=== PATIENT | male | born 1945 | race Caucasian/White ===

== ENCOUNTER 2018-04-04 11:29 | Outpatient (RCR) | payer SELFPAY | END 2018-04-05 23:59 | disposition home or self-care (01) | LOC: CR 11:29 | PROVIDERS: PCP Family Medicine; Visit Provider Family Medicine | DX: Z51.89 Encounter for other specified aftercare (principal) ==

== ENCOUNTER 2018-04-25 13:26 | Outpatient (RCR) | payer SELFPAY | END 2018-05-05 23:59 | disposition home or self-care (01) | LOC: CR 13:26 | PROVIDERS: PCP Family Medicine; Visit Provider Family Medicine | DX: Z51.89 Encounter for other specified aftercare (principal) ==

== ENCOUNTER 2018-06-04 08:00 | Outpatient (RCR) | payer SELFPAY | END 2018-06-05 23:59 | disposition home or self-care (01) | LOC: CR 08:00 | PROVIDERS: PCP Family Medicine; Visit Provider Family Medicine | DX: Z51.89 Encounter for other specified aftercare (principal) ==

== ENCOUNTER 2018-07-04 08:00 | Outpatient (RCR) | payer SELFPAY | END 2018-07-05 23:59 | disposition home or self-care (01) | LOC: CR 08:00 | PROVIDERS: PCP Family Medicine; Visit Provider Family Medicine | DX: Z51.89 Encounter for other specified aftercare (principal) ==

== ENCOUNTER 2018-08-01 15:03 | Outpatient (RCR) | payer SELFPAY | END 2018-08-05 23:59 | disposition home or self-care (01) | LOC: CR 15:03 | PROVIDERS: PCP Family Medicine; Visit Provider Family Medicine | DX: Z51.89 Encounter for other specified aftercare (principal) ==

== ENCOUNTER 2018-09-05 08:00 | Outpatient (RCR) | payer SELFPAY | END 2018-09-05 23:59 | disposition home or self-care (01) | LOC: CR 08:00 | PROVIDERS: PCP Family Medicine; Visit Provider Family Medicine | DX: Z51.89 Encounter for other specified aftercare (principal) ==

== ENCOUNTER 2018-10-03 12:39 | Outpatient (RCR) | payer SELFPAY | END 2018-10-03 23:59 | disposition home or self-care (01) | LOC: CR 12:39 | PROVIDERS: PCP Family Medicine; Visit Provider Family Medicine | DX: Z51.89 Encounter for other specified aftercare (principal) ==

== ENCOUNTER 2018-10-17 10:54 | Outpatient (CLI) | payer OTHER, SELFPAY ==
[2018-10-17 13:08] LABS: Anion Gap 10.8 mmol/L (3-11); BUN 24 mg/dL (7-18); CO2 27.2 mmol/L (21.0-32.0); CREATININE 1.21 mg/dL (0.70-1.30); Calcium 9.1 mg/dL (8.5-10.1); Chloride 103 mmol/L (98-107); Estimated GFR 59.29 (mL/min/1.73m2); Glucose 175 mg/dL (70-100); Potassium 4.9 mmol/L (3.5-5.1); Sodium 141 mmol/L (136-145)
== END 2018-10-17 11:14 ==
PROVIDERS: PCP Family Medicine; Visit Provider Family Medicine
DX: R42 Dizziness and giddiness (principal)
CPT/HCPCS: 36415; 80048

== ENCOUNTER 2018-10-22 08:00 | Outpatient (RCR) | payer SELFPAY | END 2018-11-03 23:59 | disposition home or self-care (01) | LOC: CR 08:00 | PROVIDERS: PCP Family Medicine; Visit Provider Family Medicine | DX: Z51.89 Encounter for other specified aftercare (principal) ==

== ENCOUNTER 2018-12-03 08:00 | Outpatient (RCR) | payer SELFPAY | END 2018-12-03 23:59 | disposition home or self-care (01) | LOC: CR 08:00 | PROVIDERS: PCP Family Medicine; Visit Provider Family Medicine | DX: Z51.89 Encounter for other specified aftercare (principal) ==

== ENCOUNTER 2018-12-19 00:18 | Outpatient (CLI) | payer OTHER, SELFPAY ==
--- NOTE | 2018-12-19 14:51 | DI.US_ITS ---
SYMPTOM/DIAGNOSIS: TRANSIENT EPISODES ATAXIA, G45.9 CAROTID ULTRASOUND: There is a minimal amount of intimal thickening in the distal right common carotid artery. A minimal amount of plaque is noted in the left common carotid bulb. The velocity measurements are in the normal range. The vertebral arteries show antegrade flow. IMPRESSION: Minimal plaque. No significant internal carotid artery stenosis.
== END 2018-12-19 00:38 ==
PROVIDERS: PCP Family Medicine; Visit Provider Family Medicine
DX: G45.9 Transient cerebral ischemic attack, unspecified (principal)
CPT/HCPCS: 93880

== ENCOUNTER 2019-01-02 13:30 | Outpatient (RCR) | payer SELFPAY | END 2019-01-03 23:59 | disposition home or self-care (01) | LOC: CR 13:30 | PROVIDERS: PCP Family Medicine; Visit Provider Family Medicine | DX: Z51.89 Encounter for other specified aftercare (principal) ==

== ENCOUNTER 2019-01-30 11:23 | Outpatient (RCR) | payer SELFPAY | END 2019-02-02 23:59 | disposition home or self-care (01) | LOC: CR 11:23 | PROVIDERS: PCP Family Medicine; Visit Provider Family Medicine | DX: Z51.89 Encounter for other specified aftercare (principal) ==

== ENCOUNTER 2019-02-27 11:15 | Outpatient (RCR) | payer OTHER, SELFPAY | END 2019-03-05 23:59 | disposition home or self-care (01) | LOC: CR 11:15 | PROVIDERS: PCP Family Medicine; Visit Provider Family Medicine | DX: Z51.89 Encounter for other specified aftercare (principal) ==

== ENCOUNTER 2019-03-21 07:05 | Day surgery (SDC) | payer OTHER, SELFPAY ==
[2019-03-21 07:36] VITALS: BP 114/71; PULSE 70; RESP 18; TEMP 36.2; O2SAT 96
[2019-03-21] MEDS: Lactated Ringers 1,000 ML 80 ML IV (07:42)
--- NOTE | 2019-03-21 08:00 | W.PM.DSUDISC ---
Discharge Plan Disposition Patient Disposition: HOME Condition: Good Discharge Details Reason For Visit: Colonoscopy Attending Provider: Cora Burgos Primary Care Provider: Willis Bacon Home Meds and New Rx's Prescriptions: Continued levothyroxine 137 mcg capsule 137 mcg PO DAILY Qty: 90 RF: 4 Jardiance 10 mg tablet 10 mg PO Q OTHER DAY RF: 0 omega-3 fatty acids-fish oil 1 EACH capsule 1 ea PO BID RF: 0 CENTRUM SILVER TABLET 1 EACH tablet 1 ea PO DAILY RF: 0 insulin lispro [Humalog KwikPen Insulin] 100 UNIT/1 ML insulin pen 4 - 5 unit SQ AC Qty: 3 RF: 5 cinnamon bark 500 MG capsule 4 cap PO BID RF: 0 lutein 20 MG capsule 1 cap PO BID RF: 0 Tresiba FlexTouch U-200 200 UNIT/1 ML insulin pen 100 unit SQ DAILY Qty: 1 RF: 4 (DME) BD Regular Bevel [place] 1 EACH needle 1 ea Miscellaneous TID Qty: 100 RF: 0 aspirin [Aspir-81] 81 MG tablet,delayed release (DR/EC) 81 mg PO DAILY RF: 0 apple cider vinegar 300 MG tablet 300 mg PO BID RF: 0 glucosamine sulfate-msm 1 EACH capsule 1 ea PO DAILY RF: 0 metformin 1,000 mg tablet 1,000 mg PO BID Qty: 180 RF: 4 gabapentin 600 mg tablet 300 mg PO BID Qty: 270 RF: 4 cyanocobalamin (vitamin B-12) 1,000 mcg/mL solution 1,000 mcg IM Twice a month Qty: 1 RF: 4 rosuvastatin 20 mg tablet 20 mg PO DAILY Qty: 90 RF: 4 nitroglycerin 0.4 mg tablet, sublingual 0.4 mg Sublingual ONCE PRN (Reason: angina) Qty: 10 RF: 3 glipizide 10 mg tablet 10 mg PO BID Qty: 180 RF: 4 (DME) FreeStyle Lite Strips strip 1 ea Miscellaneous QID Qty: 300 RF: 4 isosorbide mononitrate 30 mg tablet extended release 24 hr 30 mg PO HS Qty: 90 RF: 3 Discharge Instructions Additional Instructions: Findings: One small polyp was removed. My office will contact you with biopsy results. Follow up: Plan for colonoscopy in 5 years. Please call if you develop: fevers >101.5 Nausea or Vomiting Abdominal pain that is not transient DAY SURGERY UNIT POST COLONOSCOPY INSTRUCTIONS 1. Because there will be medication in your system for the next 24 hours, you may feel a little sleepy. Your coordination will be affected. Therefore: a. Do not drive or operate dangerous equipment for 24 hours. b. Do not drink alcohol beverages for 24 hours (not even beer). c. Plan to go home and rest for the day. 2. Generally there are no restrictions on your activity after a day or so has gone by, but you may feel a bit fatigued for a few days. 3 After you arrive home you may have a light meal and return to a normal diet as you can tolerate it without feeling sick to your stomach. 4. After surgery, you may feel pain or discomfort. This should be only transient, but if it persists please contact your doctor. 5. If there are any questions regarding the findings of your procedure, please feel free to contact your doctor. 6. If you are unable to contact your doctor with a problem, contact the hospital at [phone]. 7. Continue all your regular medications unless directed otherwise. I understand the above instructions and have no questions. Signature of Patient or Responsible Adult Escort Date/Time Name of Responsible Adult Escort Signature of Nurse Date/Time Activity:: Activity as Tolerated Diet:: As Tolerated Discharge Orders Discharge Orders: Discharge Order (Routine); Ordered 03/21/19 Ordered By: Cora Burgos DS: Diagnosis Discharge Diagnosis (1) Polyp of colon: Status: Resolved
--- NOTE | 2019-03-21 08:36 | BOWEL_PTH ---
PATIENT: Lico Tavera LOC: [facility] U#:[id number] AGE/SX: 73/M ROOM: RE03/21/[address]: Cora Burgos MD : 1945 BED: DIS: 03/21/2019 SPEC #: [id number] RECD: 03/21/19 12:42 STATUS: ADITI REQ #: [id number] CECILE: 03/21/19 08:[address]: Cora Burgos DEPT: Surgical Specimen RECD BY: Libby Chawla ENTERED: 03/21/19 12:44 SP TYPE: Bowel OTHR DR: Willis Bacon MD Tissues: 1 - BIOPSY BOWEL Procedures: GROSS AND MICRO LEVEL 4 Comments: [id number]
[2019-03-21 09:10] VITALS: BP 113/65; PULSE 74; RESP 19; TEMP 36.6; O2SAT 95
[2019-03-21 09:15] VITALS: BP 81/49; PULSE 72; RESP 17; TEMP 36.6; O2SAT 95
[2019-03-21 09:20] VITALS: BP 100/59; PULSE 70; RESP 16; TEMP 36.6; O2SAT 95
[2019-03-21 09:25] VITALS: BP 107/65; PULSE 68; RESP 8; TEMP 36.5; O2SAT 96
[2019-03-21 10:05] VITALS: BP 120/74; PULSE 63; RESP 17; TEMP 36.2; O2SAT 95
--- NOTE | 2019-03-21 11:30 | COLE_ITS ---
DATE OF PROCEDURE: March 21, 2019 PREOPERATIVE DIAGNOSIS: History of colon polyps. POSTOPERATIVE DIAGNOSIS: Colon polyp. PROCEDURE: Colonoscopy with polypectomy. SURGEON: Cora Burgos M.D. ANESTHESIA: General endotracheal. INDICATIONS: This is a 73-year-old man whose prior colonoscopy in 2013 showed a tubular adenoma. He presents for routine follow-up. PROCEDURE: He was placed in the left [place]ma[place] position. Propofol was titrated to sedation. The scope w as advanced to the cecum without difficulty. His prep was good. The ileocecal valve and appendiceal orifice were clearly identified. There was a < 1 cm polyp present in the cecum that was removed wit h cold snare polypectomy. This was retrieved for pathology. No other abnormalities were noted throu ghout the ascending, transverse, descending, sigmoid colon or rectum, including on retroflex view. Bailey carlson tolerated the procedure well and was stable to recovery. He should plan for a colonoscopy again in five years due to the presence of another polyp. cc: Willis Bacon M.D.
== END 2019-03-21 10:35 | disposition home or self-care (01) ==
PROVIDERS: PCP Family Medicine; Visit Provider Surgery
PROC: 0DJD8ZZ Inspection of Lower Intestinal Tract, Via Natural or Artificial Opening Endoscopic (ICD-10-PCS; CPT 45378; principal; 2019-03-21 08:30)
DX: Z12.11 Encounter for screening for malignant neoplasm of colon (principal); D12.0 Benign neoplasm of cecum; Z86.010 Personal history of colon polyps; E11.9 Type 2 diabetes mellitus without complications; Z79.4 Long term (current) use of insulin; Z79.84 Long term (current) use of oral hypoglycemic drugs; I10 Essential (primary) hypertension
CPT/HCPCS: 45385; 88305

== ENCOUNTER 2019-04-03 08:00 | Outpatient (RCR) | payer SELFPAY | END 2019-04-05 23:59 | disposition home or self-care (01) | LOC: CR 08:00 | PROVIDERS: PCP Family Medicine; Visit Provider Family Medicine | DX: Z51.89 Encounter for other specified aftercare (principal) ==

== ENCOUNTER 2019-04-24 08:00 | Outpatient (RCR) | payer SELFPAY | END 2019-05-05 23:59 | disposition home or self-care (01) | LOC: CR 08:00 | PROVIDERS: PCP Family Medicine; Visit Provider Family Medicine | DX: Z51.89 Encounter for other specified aftercare (principal) ==

== ENCOUNTER 2019-06-05 11:59 | Outpatient (RCR) | payer SELFPAY | END 2019-06-05 23:59 | disposition home or self-care (01) | LOC: CR 11:59 | PROVIDERS: PCP Family Medicine; Visit Provider Family Medicine | DX: Z51.89 Encounter for other specified aftercare (principal) ==

== ENCOUNTER 2019-07-01 15:13 | Outpatient (RCR) | payer SELFPAY | END 2019-07-05 23:59 | disposition home or self-care (01) | LOC: CR 15:13 | PROVIDERS: PCP Family Medicine; Visit Provider Family Medicine | DX: Z51.89 Encounter for other specified aftercare (principal) ==

== ENCOUNTER 2019-07-31 08:00 | Outpatient (RCR) | payer OTHER, SELFPAY | END 2019-08-05 23:59 | disposition home or self-care (01) | LOC: CR 08:00 | PROVIDERS: PCP Family Medicine; Visit Provider Family Medicine | DX: Z51.89 Encounter for other specified aftercare (principal) ==

== ENCOUNTER 2019-08-28 08:00 | Outpatient (RCR) | payer SELFPAY | END 2019-09-05 23:59 | disposition home or self-care (01) | LOC: CR 08:00 | PROVIDERS: PCP Family Medicine; Visit Provider Family Medicine | DX: Z51.89 Encounter for other specified aftercare (principal) ==

== ENCOUNTER 2019-09-28 04:34 | Emergency (ER) | payer OTHER, SELFPAY ==
[2019-09-28 04:37] VITALS: BP 150/86; PULSE 74; RESP 16; TEMP 36.7; O2SAT 95
--- NOTE | 2019-09-28 04:39 | W.ED.GENAD ---
Discharge Plan Disposition Patient Disposition: HOME Condition: Stable Discharge Details Chief Complaint: Chest Pain Clinical Impression: Chest pain Primary Care Provider: Willis Bacon ED Provider: Zheng William Home Meds and New Rx's Prescriptions: Continued levothyroxine 137 mcg capsule 137 mcg PO DAILY Qty: 90 RF: 4 nitroglycerin 0.4 mg tablet, sublingual 0.4 mg Sublingual ONCE PRN (Reason: angina) Qty: 10 RF: 3 Trulicity 1.5 mg/0.5 mL pen injector 1.5 mg SC QWEEK RF: 0 rosuvastatin 20 mg tablet 20 mg PO DAILY Qty: 90 RF: 4 omega-3 fatty acids-fish oil 1 EACH capsule 1 ea PO BID RF: 0 CENTRUM SILVER TABLET 1 EACH tablet 1 ea PO DAILY RF: 0 (DME) BD Regular Bevel [place] 1 EACH needle 1 ea Miscellaneous TID Qty: 100 RF: 0 aspirin [Aspir-81] 81 MG tablet,delayed release (DR/EC) 81 mg PO DAILY RF: 0 glucosamine sulfate-msm 1 EACH capsule 1 ea PO DAILY RF: 0 glipizide 10 mg tablet 10 mg PO BID Qty: 180 RF: 4 (DME) FreeStyle Lite Strips strip 1 ea Miscellaneous QID Qty: 300 RF: 4 isosorbide mononitrate 30 mg tablet extended release 24 hr 30 mg PO HS Qty: 90 RF: 3 gabapentin 600 mg tablet 300 mg PO BID Qty: 270 RF: 4 Tresiba FlexTouch U-200 200 unit/mL (3 mL) insulin pen 116 unit subcut DAILY Qty: 1 RF: 4 metformin 1,000 mg tablet 1,000 mg PO BID Qty: 180 RF: 4 lutein 20 mg capsule 40 mg PO DAILY RF: 0 cyanocobalamin (vitamin B-12) 1,000 mcg/mL solution 1,000 mcg IM Twice a month Qty: 1 RF: 4 magnesium 200 mg Tablet 200 mg HS RF: 0 Discharge Instructions Instructions: Chest Pain (ED) Additional Instructions: I placed you on the folllow up list to see your samples and repairs preparer as soon as possible if you have worsening pain, start having nausea/vomit or difficulty breathing or feel more ill return to the emergency department Medical Decision Making 73-year-old male with past medical history significant for htn ,t2dm, hld, bstructive sleep apnea, and STEMI in 2017 (PCI to LAD/D1, [employer]) who comes in with chief complaint of chest pain. HE states since sunday he has had a dull ache in his chest with no shortness of breath, n/v, diaphoresis and no n/v. States this doesn't seem to feel like the pain he had when he had his STEMI in 2017 as the pain isn't as severe and has no jaw pain. He denies fevers, shortness of breath and has no pain now. He took 324mg asa prior to coming here. He is in no distress on exam with clerar lungs and no murmurs soft nontender abdomen. EKG unremarkable. Will obtain troponin. No hypoxia, tachycardia, pleuritic pain or evidence of dvt so doubt PE. NOrmal vascular exam and no tearing back pain so doubt dissection. pt's labs are unremarkable, troponin negative and has had the pain for 2 days so would expect it to be elevated at this point if nstemi. He continues to have no pain here. I recommended observation admission but pt declined and would prefer to f/u with his samples and repairs preparer and has decision making capacity. He understands return precautions discussed with him including worsening pain or shortness of breath Differential Diagnosis Differential Diagnosis: nstemi, gerd, gastritis Medical Records Medical records reviewed: Yes I reviewed the patient's medical records. Imaging Data Radiologic Study: Attestation: I personally reviewed and interpreted this imaging study as follows: Imaging: X-Ray Radiologist's impression: no acute findings Lab Data Lab results reviewed: Yes I reviewed the patient's lab results. ECG Data Attestation: I personally reviewed and interpreted this ECG (s) as follows: Prior ECG tracings: not available for review Interpretation: sinus rhythm, rate of 79, pr 156, qtc 406, no acute st t wave ischemic changes HPI General Mode of arrival: ambulatory. Date/Time Provider Initiated Documentation: 09/28/19 04:37. Limitations to Documentation: no limitations. Information obtained by: patient. History of Present Illness 73 year old M presents to the emergency department with the chief complaint of chest pain, described as moderate, and it has been now resolved. No relieving factors improve symptom(s), No exacerbating factors reported . Patient did receive the following treatments prior to arrival, none Related Data Home Medications Medication Instructions Recorded Confirmed Centrum Silver Tablet 1 ea PO DAILY 10/04/12 09/28/19 omega-3 fatty acids-fish oil 1 ea PO BID 10/04/12 09/28/19 BD Regular Bevel [place] #100 ndl 01/25/17 09/02/19 aspirin [Aspir-81] 81 mg PO DAILY tab-cap 03/22/17 09/28/19 glucosamine sulfate-msm 1 ea PO DAILY 10/30/17 09/28/19 levothyroxine 137 mcg capsule 137 mcg PO DAILY #90 cap 05/21/18 09/28/19 blood sugar diagnostic #300 strip 11/12/18 09/02/19 glipizide 10 mg tablet 10 mg PO BID #180 tab-cap 11/12/18 09/28/19 isosorbide mononitrate 30 mg 30 mg PO HS #90 tab-cap 02/19/19 09/28/19 tablet,extended release 24 hr gabapentin 600 mg tablet 300 mg PO BID #270 tab 06/10/19 09/28/19 insulin degludec 200 unit/mL (3 116 unit SUBCUT DAILY #1 ml 07/08/19 09/28/19 mL) subcutaneous pen nitroglycerin 0.4 mg sublingual 0.4 mg SUBLINGUAL ONCE PRN #10 07/08/19 09/28/19 tablet tab-cap metformin 1,000 mg tablet 1,000 mg PO BID #180 tab-cap 07/10/19 09/28/19 lutein 20 mg capsule 40 mg PO DAILY cap 07/14/19 09/28/19 cyanocobalamin (vitamin B-12) 1,000 mcg IM Twice a month #1 vial 08/14/19 09/28/19 1,000 mcg/mL injection solution dulaglutide 1.5 mg/0.5 mL 1.5 mg SC QWEEK 09/02/19 09/28/19 subcutaneous pen injector rosuvastatin 20 mg tablet 20 mg PO DAILY #90 tab 09/02/19 09/28/19 magnesium 200 mg HS 09/28/19 09/28/19 Previous Rx's Medication Instructions Recorded levothyroxine 137 mcg capsule 137 mcg PO DAILY #90 cap 05/21/18 blood sugar diagnostic #300 strip 11/12/18 glipizide 10 mg tablet 10 mg PO BID #180 tab-cap 04/09/19 isosorbide mononitrate 30 mg 30 mg PO HS #90 tab-cap 02/19/19 tablet,extended release 24 hr gabapentin 600 mg tablet 300 mg PO BID #270 tab 06/10/19 nitroglycerin 0.4 mg sublingual 0.4 mg SUBLINGUAL ONCE PRN #10 07/08/19 tablet tab-cap metformin 1,000 mg tablet 1,000 mg PO BID #180 tab-cap 07/10/19 cyanocobalamin (vitamin B-12) 1,000 mcg IM Twice a month #1 vial 08/14/19 1,000 mcg/mL injection solution rosuvastatin 20 mg tablet 20 mg PO DAILY #90 tab 09/02/19 Allergies Allergy/AdvReac Type Severity Reaction Status Date / Time empagliflozin AdvReac Intermediate Verified 09/28/19 05:05 Review of Systems All systems reviewed & are unremarkable except as noted in HPI and below Constitutional Constitutional: Denies chills, Denies fever(s) and Denies weakness Cardiovascular Cardiovascular: Denies dyspnea Respiratory Respiratory: Denies cough and Denies dyspnea Gastrointestinal Gastrointestinal: Denies abdominal pain, Denies nausea and Denies vomiting Musculoskeletal Musculoskeletal: Denies joint swelling Neurologic Neurologic: Denies weakness Psychiatric Psychiatric: Denies depression PFS Social History Smoking/Tobacco Use Status: Former Tobacco Use Quit Date: 08/06/90 Second Hand Exposure: No Alcohol Intake: current Alcohol Intake frequency: holidays/special occasions only Alcohol type: beer Drug use: Never Substance use type: does not use Details: alcohol months ago Caregiver/Support person: No Household members: other Details: 2 Housing: house Communication Needs: None Do you need help understanding health information?: Never Pets and animals: Yes Pets and animals: cat(s) Sexually active: Yes Do you think of yourself as: straight/heterosexual Current gender identity: male What is your relationship status?: How often do you talk on the phone with friends or family?: three or more times per week How often do you get together with friends or relatives?: three or more times per week How often do you attend episcopal or protestant services?: 4 or more times per year Do you belong to any clubs or organized social groups?: yes Panel score (0-1 are the most socially isolated patients): 4 What type of physical activity do you participate in: independent ambulation, weight lifting and other Details: square dancing twice a week, card rehab twice a week Duration: 30-45 minutes/day Frequency: 3-4 times per week Lilliana/Latter Day: Jehovah'S Witness Special lilliana needs: No Seatbelt use: always Drive intox or ride w/intox marine engine driver: No Do you feel safe at home: Yes Do you feel safe in your relationship?: Yes Exam Const General: no acute distress Orientation: alert HENMT Head: normal to inspection Ears: external ears normal General nose exam: external nose normal Mouth: moist mucous membranes Eyes General: appearance normal, both eyes and all related structures Neck Neck: normal visual inspection Resp Effort & Inspection: normal respiratory effort and able to speak in complete sentences Cardio Rate: regular rate Skin General skin exam: no rashes or lesions noted Neuro General: alert and oriented x3 Extrem General: normal to inspection Psych Mental Status: mental status grossly normal
--- NOTE | 2019-09-28 04:45 | DI.RAD_ITS ---
EXAM: XR PORTABLE CHEST AP XR PORTABLE CHEST AP CLINICAL HISTORY: chest pain. chest pain TECHNIQUE: 2D digital imaging was performed. COMPARISON: CHEST 2 VIEWS PA,LAT from 10/22/2017 FINDINGS: LUNGS: Clear. No pleural abnormality seen. HEART: Normal. MEDIASTINUM: Normal. OTHER FINDINGS: None. IMPRESSION: No acute pulmonary findings. DATA REPOSITORY: RADIATION DOSE DELIVERED:
[2019-09-28 05:00] VITALS: BP 103/83; PULSE 76; RESP 14; O2SAT 98
[2019-09-28 05:07] LABS: Abs Immature Grans 0.02 k/cumm (0.0-0.09); Absolute Basophil Count 0.01 k/cumm (0.0-0.2); Absolute Eosinophil Count 0.08 k/cumm (0.0-0.7); Absolute Lymphocyte Count 1.06 k/cumm (1.2-3.4); Absolute Monocyte Count 0.42 k/cumm (0.11-0.7); Basophils % 0.2; Eosinophils % 1.5; HCT 44.2 % (40.0-50.0); HGB 15.1 g/dL (13.5-17.5); Immature Grans % 0.4 %; Mean Corp. HGB Concentration 34.2 g/dL (32.0-36.0); Mean Corpuscular Hemoglobin 27.6 pg (27.0-33.0); Mean Corpuscular Volume 80.8 fL (80-95); Mean Platelet Volume 9.1 fL (8.0-11.0); Monocytes % 7.9; Platelet Count 176 x1000/uL (130-400); RBC 5.47 m/cumm (4.50-6.00); RBC Distribution Width 14.5 % (11.8-14.1); White Blood Cell Count 5.29 k/cumm (4.4-10.8)
[2019-09-28 05:22] LABS: ALT 26 U/L (16-63); AST 31 U/L (15-37); Albumin 3.7 g/dL (3.4-5.0); Alkaline Phosphatase 71 U/L (46-116); Anion Gap 7.6 mmol/L (3-11); BUN 18 mg/dL (7-18); Bilirubin, Total 0.4 mg/dL (0.2-1.0); CO2 28.4 mmol/L (21.0-32.0); CREATININE 1.02 mg/dL (0.70-1.30); Calcium 8.9 mg/dL (8.5-10.1); Chloride 103 mmol/L (98-107); Glucose 160 mg/dL (74-106); Lipase 145 U/L (73-393); Magnesium 1.8 mg/dL (1.8-2.4); Potassium 4.6 mmol/L (3.5-5.1); Sodium 139 mmol/L (136-145); Total Protein 7.2 g/dL (6.4-8.2)
[2019-09-28 05:23] LABS: Troponin I < 0.05 ng/Ml (<0.06)
[2019-09-28 05:31] LABS: PTT Activated 28.2 sec (21.0-31.4)
--- NOTE | 2019-09-28 05:40 | DI.VRAD_ITS ---
PROCEDURE INFORMATION: Exam: XR Chest, 1 View Exam date and time: 09/28/2019 5:22 AM Age: 73 years old Clinical indication: Chest pain TECHNIQUE: Imaging protocol: XR of the chest Views: 1 view. COMPARISON: CR CHEST 2 VIEWS PA,LAT 10/22/2017 3:04 PM FINDINGS: Lungs: The lung [place] appear clear. Pleural space: No pleural effusion or pneumothorax is seen. Heart/Mediastinum: The heart is normal in size. The mediastinal contours appear unremarkable. Bones/joints: The visualized bony structures appear grossly intact. Osteophytes are present along the margin of the spine. IMPRESSION: No active disease is seen in the chest. Dictated and Authenticated by: Joey Wayne MD. Ordering:MARIA ESTHER Calzada MD
[2019-09-28 05:49] VITALS: BP 136/87; PULSE 82; RESP 16; O2SAT 95
--- NOTE | 2019-09-28 06:19 | NUR.NOTE ---
FOLLOW UP REFERRAL FAXED TO CARDIOLOGY REQUESTED BY Nursing Note:
== END 2019-09-28 05:50 | disposition home or self-care (01) ==
PROVIDERS: Emergency Provider Emergency Medicine; PCP Family Medicine
DX: R07.9 Chest pain, unspecified (principal); E11.9 Type 2 diabetes mellitus without complications; Z79.84 Long term (current) use of oral hypoglycemic drugs; I10 Essential (primary) hypertension; I25.2 Old myocardial infarction; Z95.5 Presence of coronary angioplasty implant and graft
CPT/HCPCS: 36415; 80053; 83690; 93005; 99285; 71045; 83735; 84484; 85025; 85610; 85730; 93010; 99284

== ENCOUNTER 2019-10-02 08:00 | Outpatient (RCR) | payer SELFPAY | END 2019-10-04 23:59 | disposition home or self-care (01) | LOC: CR 08:00 | PROVIDERS: PCP Family Medicine; Visit Provider Family Medicine | DX: Z51.89 Encounter for other specified aftercare (principal) ==

== ENCOUNTER 2019-10-14 08:00 | Outpatient (RCR) | payer SELFPAY | END 2019-11-04 23:59 | disposition home or self-care (01) | LOC: CR 08:00 | PROVIDERS: PCP Family Medicine; Visit Provider Family Medicine | DX: Z51.89 Encounter for other specified aftercare (principal) ==

== ENCOUNTER 2020-01-20 01:53 | Outpatient (CLI) | payer OTHER, SELFPAY ==
[2020-01-20 12:31] LABS: Hemoglobin A1C 6.4 % (3.8-5.6)
[2020-01-20 13:37] LABS: COMMENT (LAB VIEW ONLY) 110.77 mg/dL; Microalb ug/mg Crea 41.2 ug/mg Cr
[2020-01-20 14:02] LABS: ALT 33 U/L (16-63); AST 19 U/L (15-37); Albumin 4.2 g/dL (3.4-5.0); Alkaline Phosphatase 69 U/L (46-116); Anion Gap 6.1 mmol/L (3-11); BUN 15 mg/dL (7-18); Bilirubin, Total 0.4 mg/dL (0.2-1.0); CO2 30.9 mmol/L (21.0-32.0); CREATININE 1.02 mg/dL (0.70-1.30); Calcium 9.2 mg/dL (8.5-10.1); Calculated LDL 50 mg/dL (<100); Chloride 103 mmol/L (98-107); Cholesterol 120 mg/dL (<200); Glucose 140 mg/dL (74-106); HDL Cholesterol 27 mg/dL (40-60); Sodium 140 mmol/L (136-145); TSH 3.15 uIU/mL (0.36-3.74); Total Protein 7.1 g/dL (6.4-8.2); Triglyceride 219 mg/dL (<150); Vitamin B12 509 pg/mL (193-986)
[2020-01-23 00:15] LABS: 25-Hydroxy D Total 51 ng/mL; 25-Hydroxy D2 <4.0 ng/mL; 25-Hydroxy D3 51 ng/mL
== END 2020-01-20 02:13 ==
PROVIDERS: PCP Family Medicine; Visit Provider Internal Medicine Endocrinology, Diabetes & Metabolism
DX: E11.40 Type 2 diabetes mellitus with diabetic neuropathy, unspecified (principal); E03.8 Other specified hypothyroidism; E78.5 Hyperlipidemia, unspecified; E55.9 Vitamin D deficiency, unspecified; E53.8 Deficiency of other specified B group vitamins
CPT/HCPCS: 36415; 80053; 80061; 82306; 82043; 82570; 82607; 83036; 84443

== ENCOUNTER 2020-10-04 21:37 | Outpatient (REF) | payer OTHER, SELFPAY ==
[2020-10-04 21:29] LABS: Abs Immature Grans 0.01 10^3/uL (0.0-0.06); Absolute Basophil Count 0.02 10^3/uL (0.0-0.2); Absolute Eosinophil Count 0.09 10^3/uL (0.0-0.7); Absolute Lymphocyte Count 1.12 10^3/uL (1.2-3.4); Absolute Monocyte Count 0.36 10^3/uL (0.1-0.8); Basophils % 0.4; Eosinophils % 1.7; HCT 46.5 % (40.0-50.0); HGB 15.5 g/dL (13.5-17.5); Immature Grans % 0.2; Lymphocytes % 21.5; MCH 29.2 pg (27.0-33.0); MCHC 33.3 % (32.0-36.0); MCV 87.7 fL (80-95); MPV 9.8 fL (8.0-11.0); Monocytes % 6.9; Neutrophils % 69.3; Nucleated RBC 0 %; Platelet Count 170 10^3/uL (130-400); RDW 13.3 % (11.8-14.1); RDW-SD 42.5 fL
[2020-10-04 21:32] LABS: Anion Gap 11.8 mmol/L (3-11); BUN 17 mg/dL (7-18); CO2 25.2 mmol/L (21.0-32.0); Calcium 9.1 mg/dL (8.5-10.1); Chloride 104 mmol/L (98-107); Glucose 165 mg/dL (74-106); Potassium 4.2 mmol/L (3.5-5.1); Sodium 141 mmol/L (136-145)
[2020-10-04 21:43] LABS: Hemoglobin A1C 6.7 % (<5.7)
[2020-10-04 21:55] LABS: COMMENT (LAB VIEW ONLY) 123.02 mg/dL; Microalb ug/mg Crea 15.9 ug/mg Cr
== END 2020-10-04 21:38 | disposition home or self-care (01) ==
LOC: LBN 21:37
PROVIDERS: PCP Family Medicine; Visit Provider Physician Assistant
DX: E11.49 Type 2 diabetes mellitus with other diabetic neurological complication (principal); E53.8 Deficiency of other specified B group vitamins
CPT/HCPCS: 80048; 82043; 82570; 83036; 85025

== ENCOUNTER 2021-01-17 01:40 | Outpatient (CLI) | payer OTHER, SELFPAY ==
--- NOTE | 2021-01-17 07:15 | DI.MRI_ITS ---
Exam(s) MR BRAIN WO EXAM: MR BRAIN WO CLINICAL HISTORY: migraine w/ difficulty walking, vision change,ATYPICAL MIGRAINE,G43.009 TECHNIQUE: Multiplanar multisequence MRI of the brain was performed. COMPARISON: No exams were available for comparison FINDINGS: CEREBRAL PARENCHYMA: There is no evidence of intracranial hemorrhage, mass effect, or shift of midline structures. There are no extra-axial fluid collections. Ventricles are not enlarged or shifted. There is symmetrical age related atrophy. There is no significant focal signal abnormality in the cerebellar hemispheres nor within the ricky, m idbrain, and thalami. There is no abnormal signal abnormality in the periventricular white matter. There is no significant focal signal abnormality evident on diffusion imaging to suggest acute ischem ic event. PITUITARY GLAND: No mass nor parasellar abnormality. No obvious abnormality in the cavernous sinuses. FLOW VOIDS: The expected flow void are noted. No evidence of obvious aneurysm nor obvious vascular ma lformation. PARANASAL SINUSES: The visualized paranasal sinuses appear unremarkable. No obvious finding ORBITS: No obvious findings. IMPRESSION: No significant intracranial findings on this noninfused MRI scan of the brain. There is symmetrical involutional change consistent with this patient's age. DATA REPOSITORY:
== END 2021-01-17 02:00 ==
PROVIDERS: PCP Family Medicine; Visit Provider Nurse Practitioner Adult Health
DX: G43.009 Migraine without aura, not intractable, without status migrainosus (principal); R26.2 Difficulty in walking, not elsewhere classified; H53.8 Other visual disturbances
CPT/HCPCS: 70551

== ENCOUNTER 2021-02-01 09:00 | Outpatient (RCR) | payer SELFPAY ==
[2021-01-11 08:00] VITALS: BP 113/67; PULSE 76
[2021-01-13 08:56] VITALS: BP 114/76; PULSE 71
[2021-01-18 08:57] VITALS: BP 117/76; PULSE 75
[2021-01-20 08:54] VITALS: BP 121/76; PULSE 76
[2021-01-25 08:50] VITALS: BP 112/74; PULSE 68
[2021-02-01 09:06] VITALS: BP 123/72; PULSE 71
== END 2021-02-02 23:59 | disposition home or self-care (01) ==
LOC: CR 09:00
PROVIDERS: PCP Family Medicine; Visit Provider Family Medicine

== ENCOUNTER 2021-02-23 02:56 | Outpatient (CLI) | payer MEDICARE, SELFPAY ==
[2021-02-23 13:17] LABS: ALT 35 U/L (16-63); AST 23 U/L (15-37); Albumin 3.9 g/dL (3.4-5.0); Alkaline Phosphatase 67 U/L (46-116); Anion Gap 10.6 mmol/L (3-11); BUN 17 mg/dL (7-18); Bilirubin, Total 0.3 mg/dL (0.2-1.0); CO2 24.4 mmol/L (21.0-32.0); CREATININE 1.1 mg/dL (0.70-1.30); Calcium 8.8 mg/dL (8.5-10.1); Calculated LDL 26 mg/dL (<100); Chloride 107 mmol/L (98-107); Cholesterol 123 mg/dL (<200); Glucose 137 mg/dL (74-106); HDL Cholesterol 27 mg/dL (40-60); Potassium 4.3 mmol/L (3.5-5.1); Sodium 142 mmol/L (136-145); TSH (W/Ref FT4) 4.11 uIU/mL (0.36-3.74); Total Protein 6.7 g/dL (6.4-8.2); Triglyceride 352 mg/dL (<150)
[2021-02-23 13:38] LABS: FREE T4 0.85 ng/dL (0.76-1.46)
[2021-02-23 13:53] LABS: COMMENT (LAB VIEW ONLY) 84.93 mg/dL; Microalb ug/mg Crea 8.5 ug/mg Cr
== END 2021-02-23 02:57 | disposition home or self-care (01) ==
LOC: LOS 02:57
PROVIDERS: PCP Family Medicine; Visit Provider Family Medicine
DX: E11.49 Type 2 diabetes mellitus with other diabetic neurological complication (principal); E03.9 Hypothyroidism, unspecified; E78.5 Hyperlipidemia, unspecified; I10 Essential (primary) hypertension
CPT/HCPCS: 36415; 80053; 80061; 82043; 82570; 84439; 84443

== ENCOUNTER 2021-03-03 09:00 | Outpatient (RCR) | payer OTHER, SELFPAY ==
[2021-02-03 00:26] VITALS: BP 123/72; PULSE 71
[2021-02-03 08:53] VITALS: BP 119/74; PULSE 70
[2021-02-08 08:54] VITALS: BP 110/61; PULSE 70; O2SAT 95
[2021-02-10 10:10] VITALS: BP 111/71; PULSE 67
[2021-02-15 08:56] VITALS: BP 114/71; PULSE 69
[2021-02-17 08:58] VITALS: BP 112/73; PULSE 66
[2021-02-24 08:53] VITALS: BP 119/73; PULSE 72
[2021-03-01 09:07] VITALS: BP 106/62; PULSE 67
[2021-03-03 08:53] VITALS: BP 129/77; PULSE 66
== END 2021-03-05 23:59 | disposition home or self-care (01) ==
LOC: CR 09:00
PROVIDERS: PCP Family Medicine; Visit Provider Family Medicine
DX: Z51.89 Encounter for other specified aftercare (principal)

== ENCOUNTER 2021-04-05 09:00 | Outpatient (RCR) | payer SELFPAY ==
[2021-03-06 00:25] VITALS: BP 129/77; PULSE 66
[2021-03-08 09:06] VITALS: BP 117/72; PULSE 72
[2021-03-10 09:03] VITALS: BP 129/70; PULSE 71
[2021-03-15 08:59] VITALS: BP 120/69; PULSE 67
[2021-03-17 08:54] VITALS: BP 122/74; PULSE 71
[2021-03-22 09:30] VITALS: BP 110/70; PULSE 66
[2021-03-24 09:06] VITALS: BP 125/77; PULSE 69
[2021-03-29 09:23] VITALS: BP 115/70; PULSE 70
[2021-03-31 08:50] VITALS: BP 113/65; PULSE 63
[2021-04-05 09:09] VITALS: BP 101/65; PULSE 60
== END 2021-04-05 23:59 | disposition home or self-care (01) ==
LOC: CR 09:00
PROVIDERS: PCP Family Medicine; Visit Provider Family Medicine
DX: Z51.89 Encounter for other specified aftercare (principal)

== ENCOUNTER 2021-05-05 09:00 | Outpatient (RCR) | payer SELFPAY ==
[2021-04-06 00:23] VITALS: BP 101/65; PULSE 60
[2021-04-07 10:19] VITALS: BP 118/69; PULSE 59
[2021-04-12 13:28] VITALS: BP 104/57; PULSE 67
[2021-04-14 08:57] VITALS: BP 125/70; PULSE 75
[2021-04-19 09:04] VITALS: BP 100/58; PULSE 66
[2021-04-21 09:38] VITALS: BP 122/72; PULSE 64
[2021-04-28 10:54] VITALS: BP 112/73; PULSE 73
[2021-05-03 09:08] VITALS: BP 113/70; PULSE 68
[2021-05-05 09:01] VITALS: BP 120/71; PULSE 78
[2021-05-10 08:53] VITALS: BP 108/66; PULSE 75
== END 2021-05-05 23:59 | disposition home or self-care (01) ==
LOC: CR 09:00
PROVIDERS: PCP Family Medicine; Visit Provider Family Medicine
DX: Z51.89 Encounter for other specified aftercare (principal)

== ENCOUNTER 2021-05-31 01:45 | Outpatient (CLI) | payer MEDICARE, OTHER, SELFPAY ==
[2021-05-31 12:50] LABS: TSH (W/Ref FT4) 3.58 uIU/mL (0.36-3.74)
[2021-05-31 13:05] LABS: Hemoglobin A1C 6.8 % (<5.7)
[2021-05-31 22:28] LABS: PSA, Diagnostic 1.5 ng/mL (0.0-6.5)
== END 2021-05-31 01:46 | disposition home or self-care (01) ==
LOC: LOS 01:56
PROVIDERS: PCP Family Medicine; Visit Provider Family Medicine
DX: E03.9 Hypothyroidism, unspecified (principal); E11.9 Type 2 diabetes mellitus without complications; N40.0 Benign prostatic hyperplasia without lower urinary tract symptoms
CPT/HCPCS: 36415; 83036; 84153; 84443

== ENCOUNTER 2021-06-02 09:00 | Outpatient (RCR) | payer SELFPAY ==
[2021-05-06 00:26] VITALS: BP 120/71; PULSE 78
[2021-05-17 09:48] VITALS: BP 121/64; PULSE 57
[2021-05-24 08:57] VITALS: BP 107/64; PULSE 72
[2021-05-26 08:55] VITALS: BP 107/54; PULSE 68
[2021-05-31 09:10] VITALS: BP 135/74; PULSE 78
[2021-06-02 09:03] VITALS: BP 114/70; PULSE 68
== END 2021-06-05 23:59 | disposition home or self-care (01) ==
LOC: CR 09:00
PROVIDERS: PCP Family Medicine; Visit Provider Family Medicine
DX: Z51.89 Encounter for other specified aftercare (principal); R69 Illness, unspecified

== ENCOUNTER 2021-06-28 09:00 | Outpatient (RCR) | payer SELFPAY ==
[2021-06-06 00:12] VITALS: BP 114/70; PULSE 68
[2021-06-07 09:04] VITALS: BP 120/79; PULSE 76
[2021-06-09 08:58] VITALS: BP 111/71; PULSE 61
[2021-06-16 11:01] VITALS: BP 116/77; PULSE 67
[2021-06-23 08:59] VITALS: BP 111/69; PULSE 75
[2021-06-28 09:07] VITALS: BP 110/70; PULSE 88
== END 2021-07-05 23:59 | disposition home or self-care (01) ==
LOC: CR 09:00
PROVIDERS: PCP Family Medicine; Visit Provider Family Medicine
DX: Z51.89 Encounter for other specified aftercare (principal); R69 Illness, unspecified

== ENCOUNTER → 2021-07-22 11:29 | Outpatient (BNVA) | payer OTHER, SELFPAY | PROVIDERS: PCP Family Medicine; Visit Provider Internal Medicine Cardiovascular Disease | DX: I25.2 Old myocardial infarction (principal); I10 Essential (primary) hypertension; E78.5 Hyperlipidemia, unspecified | CPT/HCPCS: 99214; 99213 ==

== ENCOUNTER 2021-08-04 09:00 | Outpatient (RCR) | payer SELFPAY ==
[2021-07-06 00:18] VITALS: BP 110/70; PULSE 88
[2021-07-07 09:03] VITALS: BP 116/72; PULSE 78
[2021-07-12 10:29] VITALS: BP 116/67; PULSE 68
[2021-07-19 09:02] VITALS: BP 105/64; PULSE 67
[2021-07-21 09:29] VITALS: BP 111/68; PULSE 86
[2021-07-26 08:51] VITALS: BP 105/63; PULSE 80
[2021-08-02 09:02] VITALS: BP 115/72; PULSE 69
[2021-08-04 09:03] VITALS: BP 108/67; PULSE 73
== END 2021-08-05 23:59 | disposition home or self-care (01) ==
LOC: CR 09:00
PROVIDERS: PCP Family Medicine; Visit Provider Family Medicine
DX: Z51.89 Encounter for other specified aftercare (principal); R69 Illness, unspecified

== ENCOUNTER 2021-11-01 09:00 | Outpatient (RCR) | payer SELFPAY ==
[2021-10-04 09:14] VITALS: BP 110/69; PULSE 74
[2021-10-06 09:15] VITALS: BP 109/67; PULSE 72
[2021-10-13 09:00] VITALS: BP 112/65; PULSE 58
[2021-10-18 09:06] VITALS: BP 106/67; PULSE 75
[2021-10-20 09:00] VITALS: BP 105/64; PULSE 77
[2021-10-25 08:53] VITALS: BP 106/68; PULSE 70; O2SAT 96
[2021-11-01 08:52] VITALS: BP 117/75; PULSE 71
[2021-11-03 09:00] VITALS: BP 99/54; PULSE 71
== END 2021-11-03 23:59 | disposition home or self-care (01) ==
LOC: CR 09:00
PROVIDERS: PCP Family Medicine; Visit Provider Family Medicine
DX: R69 Illness, unspecified (principal)

== ENCOUNTER 2021-12-01 09:00 | Outpatient (RCR) | payer SELFPAY ==
[2021-11-04 00:16] VITALS: BP 99/54; PULSE 71
[2021-11-08 09:03] VITALS: BP 99/67; PULSE 71
[2021-11-10 08:55] VITALS: BP 94/51; PULSE 66
[2021-11-15 09:16] VITALS: BP 99/62; PULSE 74
[2021-11-17 08:53] VITALS: BP 106/63; PULSE 63
[2021-11-22 09:41] VITALS: BP 112/63; PULSE 66
[2021-12-01 08:53] VITALS: BP 117/66; PULSE 64
== END 2021-12-03 23:59 | disposition home or self-care (01) ==
LOC: CR 09:00
PROVIDERS: PCP Family Medicine; Visit Provider Internal Medicine Cardiovascular Disease
DX: R69 Illness, unspecified (principal)

== ENCOUNTER 2021-12-19 03:32 | Outpatient (CLI) | payer OTHER, SELFPAY ==
[2021-12-19 13:23] LABS: Vitamin B12 664 pg/mL (193-986)
== END 2021-12-19 03:33 | disposition home or self-care (01) ==
LOC: LOS 03:32
PROVIDERS: PCP Family Medicine; Visit Provider Family Medicine
DX: E53.8 Deficiency of other specified B group vitamins (principal)
CPT/HCPCS: 36415; 82607

== ENCOUNTER 2022-01-03 08:58 | Outpatient (RCR) | payer SELFPAY ==
[2021-12-04 00:07] VITALS: BP 117/66; PULSE 64
[2021-12-06 09:07] VITALS: BP 121/72; PULSE 71
[2021-12-13 09:00] VITALS: BP 98/63; PULSE 76
[2021-12-15 09:00] VITALS: BP 103/63
[2021-12-20 10:13] VITALS: BP 120/72; PULSE 71
[2021-12-29 09:18] VITALS: BP 127/73; PULSE 73
[2022-01-03 08:56] VITALS: BP 112/62; PULSE 74
== END 2022-01-03 23:59 | disposition home or self-care (01) ==
LOC: CR 08:58
PROVIDERS: PCP Family Medicine; Visit Provider Internal Medicine Cardiovascular Disease
DX: R69 Illness, unspecified (principal)

== ENCOUNTER 2022-01-20 01:28 | Outpatient (CLI) | payer OTHER, SELFPAY | END 2022-01-20 01:29 | disposition home or self-care (01) | LOC: LBO 01:28 | PROVIDERS: PCP Family Medicine ==

== ENCOUNTER 2022-01-23 02:54 | Outpatient (CLI) | payer OTHER, SELFPAY ==
[2022-01-23 17:43] LABS: Hemoglobin A1C 7.4 % (<5.7)
== END 2022-01-23 02:55 | disposition home or self-care (01) ==
LOC: LBO 02:55
PROVIDERS: Internal Medicine Endocrinology, Diabetes & Metabolism; PCP Family Medicine; Visit Provider Family Medicine
DX: E11.40 Type 2 diabetes mellitus with diabetic neuropathy, unspecified (principal)
CPT/HCPCS: 36415; 83036

== ENCOUNTER 2022-02-02 15:05 | Outpatient (RCR) | payer SELFPAY ==
[2022-01-04 00:04] VITALS: BP 112/62; PULSE 74
[2022-01-05 08:57] VITALS: BP 107/63; PULSE 69
[2022-01-10 08:58] VITALS: BP 117/66; PULSE 69
[2022-01-12 09:10] VITALS: BP 109/65; PULSE 66
[2022-01-17 09:31] VITALS: BP 112/69; PULSE 69
[2022-01-19 09:02] VITALS: BP 118/64; PULSE 74
[2022-01-24 09:01] VITALS: BP 107/55; PULSE 69
[2022-01-26 08:49] VITALS: BP 111/66; PULSE 67
[2022-02-02 09:00] VITALS: BP 113/64; PULSE 74
== END 2022-02-02 23:59 | disposition home or self-care (01) ==
LOC: CR 15:05
PROVIDERS: PCP Family Medicine; Visit Provider Internal Medicine Cardiovascular Disease
DX: R69 Illness, unspecified (principal)

== ENCOUNTER 2022-03-02 08:53 | Outpatient (RCR) | payer SELFPAY ==
[2022-02-07 09:21] VITALS: BP 100/73; PULSE 69
[2022-02-09 09:11] VITALS: BP 110/70; PULSE 77
[2022-02-16 08:57] VITALS: BP 101/59; PULSE 66
[2022-02-21 08:51] VITALS: BP 107/68; PULSE 72
[2022-02-23 08:55] VITALS: BP 117/75; PULSE 69
[2022-03-02 08:51] VITALS: BP 104/63; PULSE 69
== END 2022-03-05 23:59 | disposition home or self-care (01) ==
LOC: CR 08:53
PROVIDERS: PCP Family Medicine; Visit Provider Internal Medicine Cardiovascular Disease
DX: R69 Illness, unspecified (principal)

== ENCOUNTER 2022-03-06 16:40 | Outpatient (CLI) | payer OTHER, SELFPAY ==
[2022-03-06 17:09] LABS: ALT 20 U/L (16-63); AST 11 U/L (15-37); Albumin 3.8 g/dL (3.4-5.0); Alkaline Phosphatase 83 U/L (46-116); BUN 19 mg/dL (7-18); Bilirubin, Total 0.4 mg/dL (0.2-1.0); CREATININE 1.3 mg/dL (0.70-1.30); Calcium 8.7 mg/dL (8.5-10.1); Chloride 103 mmol/L (98-107); Estimated GFR 53.96 (mL/min/1.73m2); Glucose 220 mg/dL (74-106); Potassium 4.2 mmol/L (3.5-5.1); Sodium 137 mmol/L (136-145); Total Protein 7.8 g/dL (6.4-8.2)
== END 2022-03-06 16:41 | disposition home or self-care (01) ==
LOC: LBO 16:42
PROVIDERS: PCP Family Medicine; Visit Provider Family Medicine
DX: U07.1 COVID-19 (principal)
CPT/HCPCS: 36415; 80053

== ENCOUNTER 2022-04-04 09:00 | Outpatient (RCR) | payer SELFPAY ==
[2022-03-06 00:15] VITALS: BP 104/63; PULSE 69
[2022-03-14 09:25] VITALS: BP 111/68; PULSE 59
[2022-03-16 09:25] VITALS: BP 115/72; PULSE 64
[2022-03-21 08:52] VITALS: BP 104/68; PULSE 82
[2022-03-23 08:51] VITALS: BP 104/62; PULSE 71
[2022-03-28 08:49] VITALS: BP 108/61; PULSE 71
[2022-03-30 08:55] VITALS: BP 102/63; PULSE 74
[2022-04-04 08:59] VITALS: BP 90/59; PULSE 73
== END 2022-04-05 23:59 | disposition home or self-care (01) ==
LOC: CR 09:00
PROVIDERS: PCP Family Medicine; Visit Provider Internal Medicine Cardiovascular Disease
DX: R69 Illness, unspecified (principal)

== ENCOUNTER 2022-05-02 09:04 | Outpatient (RCR) | payer SELFPAY ==
[2022-04-06 00:18] VITALS: BP 90/59; PULSE 73
[2022-04-06 09:04] VITALS: BP 120/68; PULSE 73
[2022-04-13 08:50] VITALS: BP 106/70; PULSE 79
[2022-05-02 08:56] VITALS: BP 109/62; PULSE 66
== END 2022-05-05 23:59 | disposition home or self-care (01) ==
LOC: CR 09:04
PROVIDERS: PCP Family Medicine; Visit Provider Internal Medicine Cardiovascular Disease
DX: R69 Illness, unspecified (principal)

== ENCOUNTER 2022-05-08 04:24 | Outpatient (CLI) | payer OTHER, SELFPAY ==
[2022-05-08 12:50] LABS: COMMENT (LAB VIEW ONLY) 66.58 mg/dL; Microalb ug/mg Crea 16.7 ug/mg Cr
[2022-05-08 12:53] LABS: ALT 28 U/L (16-63); AST 18 U/L (15-37); Alkaline Phosphatase 91 U/L (46-116); Anion Gap 7.4 mmol/L (3-11); BUN 18 mg/dL (7-18); Bilirubin, Total 0.5 mg/dL (0.2-1.0); CO2 29.6 mmol/L (21.0-32.0); CREATININE 1.1 mg/dL (0.70-1.30); Calcium 9.4 mg/dL (8.5-10.1); Calculated LDL 44 mg/dL (<100); Chloride 103 mmol/L (98-107); Cholesterol 141 mg/dL (<200); Estimated GFR 70.44 (mL/min/1.73m2); Glucose 210 mg/dL (74-106); HDL Cholesterol 31 mg/dL (40-60); Potassium 4.1 mmol/L (3.5-5.1); Sodium 140 mmol/L (136-145); TSH (W/Ref FT4) 3.24 uIU/mL (0.36-3.74); Total Protein 7.5 g/dL (6.4-8.2); Triglyceride 331 mg/dL (<150)
[2022-05-08 13:00] LABS: Hemoglobin A1C 7.1 % (<5.7)
== END 2022-05-08 04:25 | disposition home or self-care (01) ==
LOC: LOS 04:24
PROVIDERS: PCP Family Medicine; Visit Provider Family Medicine
DX: E03.9 Hypothyroidism, unspecified (principal); I10 Essential (primary) hypertension; E78.5 Hyperlipidemia, unspecified; E11.9 Type 2 diabetes mellitus without complications
CPT/HCPCS: 36415; 80053; 80061; 82043; 82570; 83036; 84443

== ENCOUNTER 2022-06-01 08:57 | Outpatient (RCR) | payer SELFPAY ==
[2022-05-06 00:22] VITALS: BP 109/62; PULSE 66
[2022-05-09 08:49] VITALS: BP 129/70; PULSE 64
[2022-05-11 08:50] VITALS: BP 95/59; PULSE 70
[2022-05-16 08:50] VITALS: BP 114/66; PULSE 69
[2022-05-18 09:30] VITALS: BP 94/56; PULSE 63
[2022-05-23 08:51] VITALS: BP 100/56; PULSE 65
[2022-05-25 09:49] VITALS: BP 110/66; PULSE 63
[2022-06-01 08:52] VITALS: BP 109/59; PULSE 64
== END 2022-06-05 23:59 | disposition home or self-care (01) ==
LOC: CR 08:57
PROVIDERS: PCP Family Medicine; Visit Provider Internal Medicine Cardiovascular Disease
DX: R69 Illness, unspecified (principal)
CPT/HCPCS: S9472

== ENCOUNTER 2022-06-27 08:54 | Outpatient (RCR) | payer SELFPAY ==
[2022-06-06 00:09] VITALS: BP 109/59; PULSE 64
[2022-06-06 11:38] VITALS: BP 111/67; PULSE 67
[2022-06-08 09:03] VITALS: BP 109/66; PULSE 70
[2022-06-13 08:53] VITALS: BP 112/64; PULSE 75
[2022-06-15 08:56] VITALS: BP 116/58; PULSE 65
[2022-06-22 08:48] VITALS: BP 118/72; PULSE 70
[2022-06-27 08:52] VITALS: BP 113/63; PULSE 67
== END 2022-07-05 23:59 | disposition home or self-care (01) ==
LOC: CR 08:54
PROVIDERS: PCP Family Medicine; Visit Provider Internal Medicine Cardiovascular Disease
DX: R69 Illness, unspecified (principal)

== ENCOUNTER 2022-07-18 02:38 | Outpatient (CLI) | payer OTHER, SELFPAY ==
[2022-07-18 15:57] LABS: Hemoglobin A1C 7.3 % (<5.7)
== END 2022-07-18 02:39 | disposition home or self-care (01) ==
PROVIDERS: PCP Family Medicine; Visit Provider Internal Medicine Endocrinology, Diabetes & Metabolism
DX: E11.40 Type 2 diabetes mellitus with diabetic neuropathy, unspecified (principal)
CPT/HCPCS: 36415; 83036

== ENCOUNTER 2022-07-20 10:22 | Outpatient (CLI) | payer OTHER, SELFPAY ==
--- NOTE | 2022-07-20 10:15 | RT.EKG_ITS ---
APPROVED REPORT Exam: Resting ECG Reason for Exam: f/u Patient Location: O HR:73 bpm ECG Measurements Heart Rate 73 AXIS ID 185 P -41 QRSd 107 QRS -54 QT 372 T 87 QTc 410 Conclusion Sinus rhythm...normal P axis, V-rate 50- 99 LAD, consider left anterior fascicular block...axis(240,-40), S>R II III aVF Abnormal R-wave progression, early transition...QRS area>0 in V2 IVCD
== END 2022-07-20 10:23 | disposition home or self-care (01) ==
LOC: DI.CARD 10:24
PROVIDERS: PCP Family Medicine; Visit Provider Internal Medicine Cardiovascular Disease
DX: E78.5 Hyperlipidemia, unspecified (principal); I21.4 Non-ST elevation (NSTEMI) myocardial infarction; I25.10 Atherosclerotic heart disease of native coronary artery without angina pectoris
CPT/HCPCS: 93010

== ENCOUNTER 2022-08-03 08:55 | Outpatient (RCR) | payer SELFPAY ==
[2022-07-06 00:16] VITALS: BP 113/63; PULSE 67
[2022-07-06 09:02] VITALS: BP 112/63; PULSE 67
[2022-07-18 08:54] VITALS: BP 110/65; PULSE 69
[2022-07-20 08:52] VITALS: BP 111/65; PULSE 71
[2022-07-25 09:01] VITALS: BP 114/64; PULSE 70
[2022-08-01 08:53] VITALS: BP 115/65; PULSE 71
[2022-08-03 08:55] VITALS: BP 117/65; PULSE 67
== END 2022-08-05 23:59 | disposition home or self-care (01) ==
LOC: CR 08:55
PROVIDERS: PCP Family Medicine; Visit Provider Internal Medicine Cardiovascular Disease
DX: R69 Illness, unspecified (principal)

== ENCOUNTER 2022-09-05 09:00 | Outpatient (RCR) | payer SELFPAY ==
[2022-08-06 00:08] VITALS: BP 117/65; PULSE 67
[2022-08-08 09:02] VITALS: BP 125/70; PULSE 73
[2022-08-15 08:50] VITALS: BP 107/66; PULSE 69
[2022-08-17 09:34] VITALS: BP 109/65; PULSE 67
[2022-08-22 09:09] VITALS: BP 110/72; PULSE 72
[2022-08-24 09:09] VITALS: BP 104/68; PULSE 74
[2022-08-31 09:10] VITALS: BP 138/77; PULSE 78
[2022-09-05 09:28] VITALS: BP 122/60; PULSE 70
== END 2022-09-05 23:59 | disposition home or self-care (01) ==
LOC: CR 09:00
PROVIDERS: PCP Family Medicine; Visit Provider Internal Medicine Cardiovascular Disease
DX: R69 Illness, unspecified (principal)

== ENCOUNTER 2022-11-02 09:02 | Outpatient (RCR) | payer SELFPAY ==
[2022-10-04 00:16] VITALS: BP 128/76; PULSE 67
[2022-10-10 08:59] VITALS: BP 102/61; PULSE 72
[2022-10-12 09:03] VITALS: BP 119/65; PULSE 67
[2022-10-24 09:30] VITALS: BP 111/64; PULSE 69
[2022-10-26 09:08] VITALS: BP 116/65; PULSE 71
[2022-10-31 09:12] VITALS: BP 111/68; PULSE 72
[2022-11-02 09:00] VITALS: BP 103/60; PULSE 75
[2022-11-07 08:51] VITALS: BP 112/64; PULSE 68
== END 2022-11-03 23:59 | disposition home or self-care (01) ==
LOC: CR 09:02
PROVIDERS: PCP Family Medicine; Visit Provider Internal Medicine Cardiovascular Disease
DX: R69 Illness, unspecified (principal)

== ENCOUNTER 2022-11-30 09:09 | Outpatient (RCR) | payer SELFPAY ==
[2022-11-04 00:09] VITALS: BP 103/60; PULSE 75
[2022-11-09 09:04] VITALS: BP 134/78
[2022-11-14 08:52] VITALS: BP 115/78; PULSE 73
[2022-11-21 08:56] VITALS: BP 109/65; PULSE 72
[2022-11-28 09:57] VITALS: BP 112/71; PULSE 69
[2022-11-30 09:12] VITALS: BP 109/62; PULSE 60
== END 2022-12-03 23:59 | disposition home or self-care (01) ==
LOC: CR 09:09
PROVIDERS: PCP Family Medicine; Visit Provider Internal Medicine Cardiovascular Disease
DX: R69 Illness, unspecified (principal)

== ENCOUNTER 2023-01-02 09:07 | Outpatient (RCR) | payer SELFPAY ==
[2022-12-04 00:05] VITALS: BP 109/62; PULSE 60
[2022-12-05 09:15] VITALS: BP 115/68; PULSE 75
[2022-12-07 09:14] VITALS: BP 118/70; PULSE 67
[2022-12-12 09:12] VITALS: BP 111/68; PULSE 72
[2022-12-14 09:32] VITALS: BP 107/66; PULSE 74
[2022-12-19 09:02] VITALS: BP 104/68; PULSE 74
[2022-12-21 08:58] VITALS: BP 92/57; PULSE 72
[2023-01-02 09:30] VITALS: BP 111/65; PULSE 72
== END 2023-01-03 23:59 | disposition home or self-care (01) ==
LOC: CR 09:07
PROVIDERS: PCP Family Medicine; Visit Provider Internal Medicine Cardiovascular Disease

== ENCOUNTER 2023-02-01 09:20 | Outpatient (RCR) | payer SELFPAY ==
[2023-01-04 00:14] VITALS: BP 111/65; PULSE 72
[2023-01-04 09:16] VITALS: BP 117/64; PULSE 65
[2023-01-11 08:56] VITALS: BP 102/63; PULSE 75
[2023-01-16 08:59] VITALS: BP 101/62; PULSE 72
[2023-01-30 09:11] VITALS: BP 114/68; PULSE 76
[2023-02-01 09:19] VITALS: BP 121/71; PULSE 72
== END 2023-02-02 23:59 | disposition home or self-care (01) ==
LOC: CR 09:20
PROVIDERS: PCP Family Medicine; Visit Provider Internal Medicine Cardiovascular Disease
DX: R69 Illness, unspecified (principal)

== ENCOUNTER 2023-02-02 01:32 | Outpatient (CLI) | payer OTHER, SELFPAY ==
[2023-02-02 15:58] LABS: Hemoglobin A1C 6.7 % (<5.7)
[2023-02-02 17:07] LABS: Vitamin D 25 Total 50.6 ng/mL (30-100)
[2023-02-02 17:09] LABS: ALT 28 U/L (16-63); AST 20 U/L (15-37); Albumin 3.8 g/dL (3.4-5.0); Alkaline Phosphatase 78 U/L (46-116); Anion Gap 7.8 mmol/L (3-11); BUN 19 mg/dL (7-18); Bilirubin, Total 0.5 mg/dL (0.2-1.0); CO2 26.2 mmol/L (21.0-32.0); Calcium 9.1 mg/dL (8.5-10.1); Calculated LDL 52 mg/dL (<100); Chloride 106 mmol/L (98-107); Cholesterol 131 mg/dL (<200); Estimated GFR 78.49 (mL/min/1.73m2); Glucose 215 mg/dL (74-106); HDL Cholesterol 31 mg/dL (40-60); Potassium 4.3 mmol/L (3.5-5.1); Sodium 140 mmol/L (136-145); TSH 0.36 uIU/mL (0.36-3.74); Total Protein 7.3 g/dL (6.4-8.2); Triglyceride 242 mg/dL (<150); Vitamin B12 272 pg/mL (193-986)
[2023-02-02 17:57] LABS: COMMENT (LAB VIEW ONLY) 90.38 mg/dL; Microalb ug/mg Crea 7.9 ug/mg Cr
== END 2023-02-02 01:33 | disposition home or self-care (01) ==
PROVIDERS: PCP Family Medicine; Visit Provider Internal Medicine Endocrinology, Diabetes & Metabolism
DX: E03.9 Hypothyroidism, unspecified (principal); E11.40 Type 2 diabetes mellitus with diabetic neuropathy, unspecified; E55.9 Vitamin D deficiency, unspecified
CPT/HCPCS: 36415; 80053; 80061; 82306; 82043; 82570; 82607; 83036; 84443

== ENCOUNTER 2023-03-01 08:47 | Outpatient (RCR) | payer SELFPAY ==
[2023-02-03 00:06] VITALS: BP 121/71; PULSE 72
[2023-02-08 09:04] VITALS: BP 105/65; PULSE 64
[2023-02-13 09:31] VITALS: BP 122/65; PULSE 74
[2023-02-20 09:15] VITALS: BP 111/63; PULSE 73
[2023-02-27 09:17] VITALS: BP 103/61; PULSE 79
[2023-03-01 08:55] VITALS: BP 112/68; PULSE 71
== END 2023-03-05 23:59 | disposition home or self-care (01) ==
LOC: CR 08:47
PROVIDERS: PCP Family Medicine; Visit Provider Internal Medicine Cardiovascular Disease
DX: R69 Illness, unspecified (principal)

== ENCOUNTER 2023-04-05 09:05 | Outpatient (RCR) | payer SELFPAY ==
[2023-03-06 00:12] VITALS: BP 112/68; PULSE 71
[2023-03-06 09:10] VITALS: BP 117/82; PULSE 68
[2023-03-08 09:20] VITALS: BP 160/67; PULSE 70
[2023-03-13 08:52] VITALS: BP 112/69; PULSE 69
[2023-03-15 09:27] VITALS: BP 101/58; PULSE 69
[2023-03-20 09:25] VITALS: BP 111/68; PULSE 66
[2023-03-22 09:06] VITALS: BP 110/63; PULSE 68
[2023-03-27 08:48] VITALS: BP 112/67; PULSE 69
[2023-03-29 09:17] VITALS: BP 114/61; PULSE 74
[2023-04-03 08:55] VITALS: BP 107/66; PULSE 66
[2023-04-05 09:27] VITALS: BP 118/68; PULSE 74
== END 2023-04-05 23:59 | disposition home or self-care (01) ==
LOC: CR 09:05
PROVIDERS: PCP Family Medicine; Visit Provider Internal Medicine Cardiovascular Disease
DX: R69 Illness, unspecified (principal)

== ENCOUNTER 2023-04-19 09:01 | Outpatient (RCR) | payer SELFPAY ==
[2023-04-06 00:06] VITALS: BP 118/68; PULSE 74
[2023-04-10 09:10] VITALS: BP 105/65; PULSE 73
[2023-04-12 09:33] VITALS: BP 109/61; PULSE 68
[2023-04-17 09:09] VITALS: BP 120/73; PULSE 70
[2023-04-19 10:15] VITALS: BP 112/66; PULSE 71
== END 2023-05-05 23:59 | disposition home or self-care (01) ==
LOC: CR 09:01
PROVIDERS: PCP Family Medicine; Visit Provider Internal Medicine Cardiovascular Disease
DX: R69 Illness, unspecified (principal)

== ENCOUNTER 2023-06-05 09:07 | Outpatient (RCR) | payer SELFPAY ==
[2023-05-06 00:12] VITALS: BP 112/66; PULSE 71
[2023-05-08 08:57] VITALS: BP 106/65; PULSE 73
[2023-05-15 09:13] VITALS: BP 122/76; PULSE 76
[2023-05-22 09:07] VITALS: BP 99/55; PULSE 71
[2023-05-24 09:27] VITALS: BP 117/69; PULSE 68
[2023-05-29 09:16] VITALS: BP 113/71; PULSE 70
[2023-05-31 08:47] VITALS: BP 115/64; PULSE 72
[2023-06-05 08:58] VITALS: BP 119/67; PULSE 67
== END 2023-06-05 23:59 | disposition home or self-care (01) ==
LOC: CR 09:07
PROVIDERS: PCP Family Medicine; Visit Provider Internal Medicine Cardiovascular Disease
DX: R69 Illness, unspecified (principal)

== ENCOUNTER 2023-07-05 09:13 | Outpatient (RCR) | payer SELFPAY ==
[2023-06-06 00:08] VITALS: BP 112/66; PULSE 71
[2023-06-12 08:59] VITALS: BP 124/53; PULSE 67
[2023-06-21 09:25] VITALS: BP 99/66; PULSE 76
[2023-06-26 09:24] VITALS: BP 126/71; PULSE 70
[2023-07-03 09:03] VITALS: BP 114/70; PULSE 72
[2023-07-05 08:56] VITALS: BP 137/79; PULSE 64
== END 2023-07-05 23:59 | disposition home or self-care (01) ==
LOC: CR 09:13
PROVIDERS: PCP Family Medicine; Visit Provider Internal Medicine Cardiovascular Disease
DX: R69 Illness, unspecified (principal)

== ENCOUNTER 2023-08-02 08:51 | Outpatient (RCR) | payer SELFPAY ==
[2023-07-06 00:06] VITALS: BP 112/66; PULSE 71
[2023-07-10 09:00] VITALS: BP 115/72; PULSE 75
[2023-07-12 08:54] VITALS: BP 134/68; PULSE 63
[2023-07-26 09:03] VITALS: BP 129/76; PULSE 68
[2023-08-02 08:52] VITALS: BP 107/67; PULSE 74
== END 2023-08-05 23:59 | disposition home or self-care (01) ==
LOC: CR 08:51
PROVIDERS: PCP Family Medicine; Visit Provider Internal Medicine Cardiovascular Disease
DX: R69 Illness, unspecified (principal)

== ENCOUNTER 2023-09-04 09:01 | Outpatient (RCR) | payer SELFPAY ==
[2023-08-06 00:16] VITALS: BP 112/66; PULSE 71
[2023-08-07 09:14] VITALS: BP 109/63; PULSE 76
[2023-08-14 09:17] VITALS: BP 97/61; PULSE 68
[2023-08-16 11:16] VITALS: BP 121/74; PULSE 74
[2023-08-28 09:07] VITALS: BP 123/63; PULSE 79
[2023-08-30 09:18] VITALS: BP 116/67; PULSE 70
[2023-09-04 09:01] VITALS: BP 108/63; PULSE 70
== END 2023-09-05 23:59 | disposition home or self-care (01) ==
LOC: CR 09:01
PROVIDERS: PCP Family Medicine; Visit Provider Internal Medicine Interventional Cardiology
DX: R69 Illness, unspecified (principal)

== ENCOUNTER 2023-10-02 09:54 | Outpatient (RCR) | payer SELFPAY ==
[2023-09-06 00:22] VITALS: BP 112/66; PULSE 71
[2023-09-25 13:20] VITALS: BP 126/74; PULSE 73
[2023-09-27 09:21] VITALS: BP 122/77; PULSE 74
[2023-10-02 10:17] VITALS: BP 129/70; PULSE 83
== END 2023-10-04 23:59 | disposition home or self-care (01) ==
LOC: CR 09:54
PROVIDERS: PCP Family Medicine; Visit Provider Internal Medicine Cardiovascular Disease
DX: R69 Illness, unspecified (principal)

== ENCOUNTER 2023-11-01 09:00 | Outpatient (RCR) | payer SELFPAY ==
[2023-10-05 00:23] VITALS: BP 112/66; PULSE 71
[2023-10-09 08:58] VITALS: BP 105/66; PULSE 78
[2023-10-11 09:02] VITALS: BP 107/63; PULSE 72
[2023-10-16 09:04] VITALS: BP 120/71; PULSE 72
[2023-10-18 09:36] VITALS: BP 110/67; PULSE 73
[2023-10-23 09:00] VITALS: BP 112/66; PULSE 74
[2023-10-30 08:54] VITALS: BP 105/66; PULSE 73
[2023-11-01 09:35] VITALS: BP 111/71; PULSE 70
== END 2023-11-04 23:59 | disposition home or self-care (01) ==
LOC: CR 09:00
PROVIDERS: PCP Family Medicine; Visit Provider Internal Medicine Cardiovascular Disease
DX: R69 Illness, unspecified (principal)

== ENCOUNTER 2023-12-04 08:52 | Outpatient (RCR) | payer SELFPAY ==
[2023-11-06 10:16] VITALS: BP 106/66; PULSE 74
[2023-11-13 09:10] VITALS: BP 110/66; PULSE 71
[2023-11-15 08:52] VITALS: BP 102/65; PULSE 71
[2023-11-20 08:56] VITALS: BP 122/72; PULSE 73
[2023-11-22 08:57] VITALS: BP 101/67; PULSE 78
[2023-11-27 09:02] VITALS: BP 111/69; PULSE 74
[2023-12-04 08:57] VITALS: BP 110/66; PULSE 72
== END 2023-12-04 23:59 | disposition home or self-care (01) ==
LOC: CR 08:52
PROVIDERS: PCP Family Medicine; Visit Provider Internal Medicine Cardiovascular Disease
DX: R69 Illness, unspecified (principal)

== ENCOUNTER 2024-01-03 09:20 | Outpatient (RCR) | payer SELFPAY ==
[2023-12-05 00:12] VITALS: BP 110/66; PULSE 72
[2023-12-06 09:01] VITALS: BP 106/67; PULSE 70; O2SAT 96
[2023-12-11 09:12] VITALS: BP 110/74; PULSE 72
[2023-12-13 10:37] VITALS: BP 109/67; PULSE 72
[2023-12-27 10:09] VITALS: BP 94/58; PULSE 71
[2024-01-01 09:11] VITALS: BP 93/55; PULSE 51
[2024-01-03 09:14] VITALS: BP 118/71; PULSE 69
== END 2024-01-04 23:59 | disposition home or self-care (01) ==
LOC: CR 09:20
PROVIDERS: PCP Family Medicine; Visit Provider Internal Medicine Cardiovascular Disease
DX: R69 Illness, unspecified (principal)

== ENCOUNTER 2024-01-31 08:57 | Outpatient (RCR) | payer SELFPAY ==
[2024-01-05 00:22] VITALS: BP 110/66; PULSE 72
[2024-01-08 09:23] VITALS: BP 106/67; PULSE 71
[2024-01-10 09:15] VITALS: BP 92/60; PULSE 71
[2024-01-17 12:23] VITALS: BP 104/68; PULSE 72
[2024-01-24 09:24] VITALS: BP 104/66; PULSE 74
[2024-01-29 09:20] VITALS: BP 107/69; PULSE 69
[2024-01-31 09:12] VITALS: BP 98/63; PULSE 70
== END 2024-02-03 23:59 | disposition home or self-care (01) ==
LOC: CR 08:57
PROVIDERS: PCP Family Medicine; Visit Provider Internal Medicine Cardiovascular Disease
DX: R69 Illness, unspecified (principal)

== ENCOUNTER 2024-02-26 01:34 | Outpatient (CLI) | payer OTHER, SELFPAY ==
[2024-02-26 10:29] LABS: Hemoglobin A1C 6.4 % (<5.7)
[2024-02-26 10:51] LABS: COMMENT (LAB VIEW ONLY) 85.17 mg/dL; Microalb ug/mg Crea 10.3 ug/mg Cr
[2024-02-26 11:09] LABS: ALT 24 U/L (16-63); AST 19 U/L (15-37); Albumin 3.9 g/dL (3.4-5.0); Alkaline Phosphatase 74 U/L (46-116); Anion Gap 11.7 mmol/L (3-11); BUN 16 mg/dL (7-18); CO2 23.3 mmol/L (21.0-32.0); Calculated LDL 69 mg/dL (<100); Chloride 108 mmol/L (98-107); Cholesterol 127 mg/dL (<200); Glucose 114 mg/dL (74-106); HDL Cholesterol 39 mg/dL (40-60); Potassium 4.2 mmol/L (3.5-5.1); Sodium 143 mmol/L (136-145); TSH (W/Ref FT4) 1.52 uIU/mL (0.36-3.74); Total Protein 7.2 g/dL (6.4-8.2); Triglyceride 98 mg/dL (<150)
== END 2024-02-26 01:35 | disposition home or self-care (01) ==
PROVIDERS: PCP Family Medicine; Visit Provider Family Medicine
DX: I10 Essential (primary) hypertension (principal); E03.9 Hypothyroidism, unspecified; E11.9 Type 2 diabetes mellitus without complications
CPT/HCPCS: 36415; 80053; 80061; 82043; 82570; 83036; 84443

== ENCOUNTER 2024-02-28 09:00 | Outpatient (RCR) | payer SELFPAY ==
[2024-02-04 00:07] VITALS: BP 110/66; PULSE 72
[2024-02-05 10:01] VITALS: BP 107/68; PULSE 68
[2024-02-12 08:46] VITALS: BP 103/62; PULSE 69; O2SAT 94
[2024-02-21 13:31] VITALS: BP 103/63; PULSE 69
[2024-02-26 09:07] VITALS: BP 120/78; PULSE 63
[2024-02-28 09:00] VITALS: BP 102/63; PULSE 71
== END 2024-03-05 23:59 | disposition home or self-care (01) ==
LOC: CR 09:00
PROVIDERS: PCP Family Medicine; Visit Provider Internal Medicine Cardiovascular Disease
DX: R69 Illness, unspecified (principal)

== ENCOUNTER 2024-04-03 08:59 | Outpatient (RCR) | payer SELFPAY ==
[2024-03-06 00:27] VITALS: BP 110/66; PULSE 72
[2024-03-06 08:59] VITALS: BP 99/65; PULSE 68
[2024-03-11 09:15] VITALS: BP 100/64; PULSE 65
[2024-03-13 10:23] VITALS: BP 119/68; PULSE 60
[2024-03-18 09:21] VITALS: BP 108/65; PULSE 71
[2024-03-20 09:08] VITALS: BP 110/67; PULSE 67
[2024-03-25 10:09] VITALS: BP 99/64; PULSE 74
[2024-03-27 08:53] VITALS: BP 112/67; PULSE 74
[2024-04-01 09:09] VITALS: BP 118/79; PULSE 68
[2024-04-03 09:07] VITALS: BP 94/62; PULSE 69
== END 2024-04-05 23:59 | disposition home or self-care (01) ==
LOC: CR 08:59
PROVIDERS: PCP Family Medicine; Visit Provider Internal Medicine Cardiovascular Disease
DX: R69 Illness, unspecified (principal)

== ENCOUNTER 2024-04-22 09:34 | Outpatient (RCR) | payer SELFPAY ==
[2024-04-06 00:28] VITALS: BP 110/66; PULSE 72
[2024-04-08 10:08] VITALS: BP 102/60; PULSE 71
[2024-04-10 09:12] VITALS: BP 104/63; PULSE 72; O2SAT 94
[2024-04-15 09:12] VITALS: BP 112/72; PULSE 70
[2024-04-22 09:17] VITALS: BP 103/63; PULSE 66
== END 2024-05-05 23:59 | disposition home or self-care (01) ==
LOC: CR 09:34
PROVIDERS: PCP Family Medicine; Visit Provider Internal Medicine Cardiovascular Disease
DX: R69 Illness, unspecified (principal)

== ENCOUNTER 2024-06-05 08:45 | Outpatient (RCR) | payer SELFPAY ==
[2024-05-06 11:45] VITALS: BP 93/64; PULSE 60
[2024-05-08 08:58] VITALS: BP 105/71; PULSE 81; O2SAT 94
[2024-05-13 09:05] VITALS: BP 104/66; PULSE 71
[2024-05-15 09:29] VITALS: BP 104/66; PULSE 71
[2024-05-20 09:20] VITALS: BP 113/73; PULSE 69
[2024-05-22 08:58] VITALS: BP 90/58; PULSE 71; O2SAT 90
[2024-06-03 09:03] VITALS: BP 116/74; PULSE 62
[2024-06-05 09:21] VITALS: BP 105/63; PULSE 60
== END 2024-06-05 23:59 | disposition home or self-care (01) ==
LOC: CR 08:45
PROVIDERS: PCP Family Medicine; Visit Provider Internal Medicine Cardiovascular Disease
DX: R69 Illness, unspecified (principal)

== ENCOUNTER 2024-06-26 08:47 | Outpatient (RCR) | payer SELFPAY ==
[2024-06-06 00:15] VITALS: BP 105/63; PULSE 60
[2024-06-10 09:03] VITALS: BP 99/60; PULSE 64
[2024-06-12 09:16] VITALS: BP 96/61; PULSE 69
[2024-06-17 08:59] VITALS: BP 95/63; PULSE 76
[2024-06-19 09:01] VITALS: BP 106/71; PULSE 75
[2024-06-24 09:34] VITALS: BP 147/84; PULSE 76
[2024-06-26 08:59] VITALS: BP 106/66; PULSE 71; O2SAT 97
== END 2024-07-05 23:59 | disposition home or self-care (01) ==
LOC: CR 08:47
PROVIDERS: PCP Family Medicine; Visit Provider Internal Medicine Cardiovascular Disease
DX: R69 Illness, unspecified (principal)

== ENCOUNTER 2024-07-24 02:46 | Outpatient (CLI) | payer OTHER, SELFPAY ==
[2024-07-24 09:01] VITALS: BP 105/64; PULSE 71
[2024-07-24 10:50] LABS: Hemoglobin A1C 6.7 % (<5.7)
[2024-07-24 11:41] LABS: BUN 17 mg/dL (7-18); CREATININE 1.1 mg/dL (0.70-1.30); Chloride 107 mmol/L (98-107); Estimated GFR 69.57 (mL/min/1.73m2); Glucose 179 mg/dL (74-106); Potassium 4.3 mmol/L (3.5-5.1); Sodium 142 mmol/L (136-145); TSH 5.14 uIU/mL (0.36-3.74); Vitamin D 25 Total 52.9 ng/mL (30-100)
[2024-07-24 17:38] LABS: Lab Add On Test DONE
[2024-07-24 17:59] LABS: FREE T4 0.83 ng/dL (0.76-1.46)
== END 2024-07-24 02:47 | disposition home or self-care (01) ==
PROVIDERS: PCP Family Medicine; Visit Provider Internal Medicine Endocrinology, Diabetes & Metabolism
DX: R79.89 Other specified abnormal findings of blood chemistry (principal)
CPT/HCPCS: 36415; 80048; 82306; 83036; 84439; 84443

== ENCOUNTER 2024-08-05 08:57 | Outpatient (RCR) | payer SELFPAY ==
[2024-07-06 00:06] VITALS: BP 105/63; PULSE 60
[2024-07-08 09:33] VITALS: BP 105/66; PULSE 69
[2024-07-10 08:50] VITALS: BP 104/62; PULSE 71
[2024-07-15 09:29] VITALS: BP 108/68; PULSE 58
[2024-07-31 08:53] VITALS: BP 109/66; PULSE 72; O2SAT 97
[2024-08-05 09:22] VITALS: BP 93/61; PULSE 75
== END 2024-08-05 23:59 | disposition home or self-care (01) ==
LOC: CR 08:57
PROVIDERS: PCP Family Medicine; Visit Provider Internal Medicine Cardiovascular Disease
DX: R69 Illness, unspecified (principal)

== ENCOUNTER 2024-08-28 10:26 | Outpatient (RCR) | payer SELFPAY ==
[2024-08-06 00:05] VITALS: BP 105/63; PULSE 60
[2024-08-12 09:01] VITALS: BP 113/67; PULSE 73
[2024-08-19 09:17] VITALS: BP 115/71; PULSE 71
[2024-08-21 09:32] VITALS: BP 98/63; PULSE 65
[2024-08-28 09:05] VITALS: BP 111/68; PULSE 70
== END 2024-09-05 23:59 | disposition home or self-care (01) ==
LOC: CR 10:26
PROVIDERS: PCP Family Medicine; Visit Provider Internal Medicine Cardiovascular Disease
DX: R69 Illness, unspecified (principal)

== ENCOUNTER 2024-10-02 08:54 | Outpatient (RCR) | payer SELFPAY ==
[2024-09-06 00:16] VITALS: BP 105/63; PULSE 60
[2024-09-09 09:19] VITALS: BP 97/64; PULSE 75
[2024-09-30 09:34] VITALS: BP 108/68; PULSE 74
[2024-10-02 08:56] VITALS: BP 111/67; PULSE 65
== END 2024-10-03 23:59 | disposition home or self-care (01) ==
LOC: CR 08:54
PROVIDERS: PCP Family Medicine; Visit Provider Internal Medicine Cardiovascular Disease
DX: R69 Illness, unspecified (principal)

== ENCOUNTER 2024-10-30 08:52 | Outpatient (RCR) | payer SELFPAY ==
[2024-10-04 00:07] VITALS: BP 105/63; PULSE 60
[2024-10-07 09:06] VITALS: BP 115/69; PULSE 72
[2024-10-14 09:33] VITALS: BP 95/62; PULSE 69
[2024-10-16 09:02] VITALS: BP 90/58; PULSE 71; O2SAT 93
[2024-10-21 09:30] VITALS: BP 104/68; PULSE 69
[2024-10-23 09:13] VITALS: BP 106/70; PULSE 69
[2024-10-28 09:02] VITALS: BP 109/68; PULSE 72
[2024-10-30 09:09] VITALS: BP 96/58; PULSE 70; O2SAT 97
== END 2024-11-03 23:59 | disposition home or self-care (01) ==
LOC: CR 08:52
PROVIDERS: PCP Family Medicine; Visit Provider Internal Medicine Cardiovascular Disease
DX: R69 Illness, unspecified (principal)

== ENCOUNTER 2024-12-02 09:07 | Outpatient (RCR) | payer SELFPAY ==
[2024-11-04 00:04] VITALS: BP 105/63; PULSE 60
[2024-11-04 09:30] VITALS: BP 101/62; PULSE 78
[2024-11-11 08:58] VITALS: BP 117/71; PULSE 78
[2024-11-13 08:48] VITALS: BP 115/68; PULSE 77; O2SAT 96
[2024-11-18 09:36] VITALS: BP 105/67; PULSE 76
[2024-11-20 09:35] VITALS: BP 107/68; PULSE 74
[2024-11-25 09:09] VITALS: BP 103/65; PULSE 72
[2024-11-27 09:08] VITALS: BP 104/67; PULSE 74
[2024-12-02 09:09] VITALS: BP 109/71; PULSE 74
== END 2024-12-03 23:59 | disposition home or self-care (01) ==
LOC: CR 09:07
PROVIDERS: PCP Family Medicine; Visit Provider Internal Medicine Cardiovascular Disease
DX: R69 Illness, unspecified (principal)

== ENCOUNTER 2025-01-01 09:22 | Outpatient (RCR) | payer SELFPAY ==
[2024-12-04 00:04] VITALS: BP 105/63; PULSE 60
[2024-12-04 09:03] VITALS: BP 102/63; PULSE 71
[2024-12-09 09:30] VITALS: BP 109/64; PULSE 71
[2024-12-16 09:43] VITALS: BP 103/58; PULSE 52
[2024-12-18 09:15] VITALS: BP 108/63; PULSE 75
[2024-12-23 10:13] VITALS: BP 101/63; PULSE 80
[2024-12-25 09:19] VITALS: BP 97/62; PULSE 71
[2024-12-30 09:04] VITALS: BP 113/68; PULSE 69
[2025-01-01 09:27] VITALS: BP 100/64; PULSE 69
== END 2025-01-03 23:59 | disposition home or self-care (01) ==
LOC: CR 09:22
PROVIDERS: PCP Family Medicine; Visit Provider Internal Medicine Cardiovascular Disease
DX: R69 Illness, unspecified (principal)

== ENCOUNTER 2025-01-22 01:13 | Outpatient (CLI) | payer OTHER, SELFPAY ==
[2025-01-22 11:53] LABS: ALT 23 U/L (16-63); AST 8 U/L (15-37); Albumin 4.1 g/dL (3.4-5.0); Alkaline Phosphatase 81 U/L (46-116); Anion Gap 7.7 mmol/L (3-11); BUN 19 mg/dL (7-18); Bilirubin, Total 0.4 mg/dL (0.2-1.0); CO2 28.3 mmol/L (21.0-32.0); Calcium 8.9 mg/dL (8.5-10.1); Calculated LDL 34 mg/dL (<100); Chloride 105 mmol/L (98-107); Cholesterol 118 mg/dL (<200); Estimated GFR 77.52 (mL/min/1.73m2); Glucose 151 mg/dL (74-106); HDL Cholesterol 33 mg/dL (>or=40); Potassium 3.9 mmol/L (3.5-5.1); Sodium 141 mmol/L (136-145); TSH (W/Ref FT4) 0.68 uIU/mL (0.36-3.74); Total Protein 7.3 g/dL (6.4-8.2); Triglyceride 256 mg/dL (<150); Vitamin B12 509 pg/mL (193-986)
== END 2025-01-22 01:14 | disposition home or self-care (01) ==
LOC: LBO 01:13
PROVIDERS: PCP Family Medicine; Visit Provider Family Medicine
DX: I10 Essential (primary) hypertension (principal); E53.8 Deficiency of other specified B group vitamins; E03.9 Hypothyroidism, unspecified
CPT/HCPCS: 36415; 80053; 80061; 82607; 84443

== ENCOUNTER 2025-01-29 09:00 | Outpatient (RCR) | payer SELFPAY ==
[2025-01-04 00:04] VITALS: BP 105/63; PULSE 60
[2025-01-06 09:12] VITALS: BP 94/59; PULSE 67
[2025-01-08 09:13] VITALS: BP 120/55; PULSE 50
[2025-01-13 09:19] VITALS: BP 124/74; PULSE 69
[2025-01-20 10:05] VITALS: BP 101/64; PULSE 69
[2025-01-22 10:38] VITALS: BP 94/61; PULSE 73
[2025-01-27 09:16] VITALS: BP 103/66; PULSE 71
[2025-01-29 09:00] VITALS: BP 104/52; PULSE 67
== END 2025-02-02 23:59 | disposition home or self-care (01) ==
LOC: CR 09:00
PROVIDERS: PCP Family Medicine; Visit Provider Internal Medicine Cardiovascular Disease
DX: R69 Illness, unspecified (principal)

== ENCOUNTER 2025-03-05 09:00 | Outpatient (RCR) | payer SELFPAY ==
[2025-02-03 00:17] VITALS: BP 104/52; PULSE 67
[2025-02-05 09:01] VITALS: BP 103/65; PULSE 67; O2SAT 94
[2025-02-19 09:15] VITALS: BP 110/66; PULSE 67
[2025-02-24 09:14] VITALS: BP 105/69; PULSE 68
[2025-02-26 09:13] VITALS: BP 97/59; PULSE 67
[2025-03-05 09:17] VITALS: BP 101/65; PULSE 62
== END 2025-03-05 23:59 | disposition home or self-care (01) ==
LOC: CR 09:00
PROVIDERS: PCP Family Medicine; Visit Provider Internal Medicine Cardiovascular Disease
DX: R69 Illness, unspecified (principal)

== ENCOUNTER 2025-04-02 09:00 | Outpatient (RCR) | payer SELFPAY ==
[2025-03-06 00:07] VITALS: BP 101/65; PULSE 62
[2025-03-10 09:13] VITALS: BP 102/64; PULSE 71
[2025-03-12 09:42] VITALS: BP 105/66; PULSE 69
[2025-03-17 09:16] VITALS: BP 102/66; PULSE 70
[2025-03-24 09:33] VITALS: BP 95/60; PULSE 73
[2025-03-26 09:01] VITALS: BP 100/63; PULSE 66
[2025-03-31 09:18] VITALS: BP 98/65; PULSE 72
[2025-04-02 09:00] VITALS: BP 110/75; PULSE 69
== END 2025-04-05 23:59 | disposition home or self-care (01) ==
LOC: CR 09:00
PROVIDERS: PCP Family Medicine; Visit Provider Internal Medicine Cardiovascular Disease
DX: R69 Illness, unspecified (principal)

== ENCOUNTER 2025-05-05 09:00 | Outpatient (RCR) | payer SELFPAY ==
[2025-04-07 09:35] VITALS: BP 101/68; PULSE 75
[2025-04-14 09:18] VITALS: BP 103/66; PULSE 66
[2025-04-16 09:24] VITALS: BP 110/73; PULSE 67
[2025-04-21 10:39] VITALS: BP 102/62; PULSE 68
[2025-04-23 15:12] VITALS: BP 90/58; PULSE 70
[2025-04-28 09:09] VITALS: BP 91/57; PULSE 73
[2025-04-30 08:58] VITALS: BP 110/66; PULSE 73
[2025-05-05 09:11] VITALS: BP 105/68; PULSE 75
== END 2025-05-05 23:59 | disposition home or self-care (01) ==
LOC: CR 09:00
PROVIDERS: PCP Family Medicine; Visit Provider Internal Medicine Cardiovascular Disease
DX: R69 Illness, unspecified (principal)

== ENCOUNTER 2025-06-04 09:00 | Outpatient (RCR) | payer SELFPAY ==
[2025-05-06 00:09] VITALS: BP 105/68; PULSE 75
[2025-05-07 10:00] VITALS: BP 100/57; PULSE 74
[2025-05-12 09:10] VITALS: BP 105/67; PULSE 69
[2025-05-19 09:25] VITALS: BP 101/64; PULSE 72
[2025-05-21 09:01] VITALS: BP 102/68; PULSE 69
[2025-05-26 09:05] VITALS: BP 92/61; PULSE 71
[2025-05-28 09:11] VITALS: BP 96/57; PULSE 67
[2025-06-02 09:20] VITALS: BP 98/62; PULSE 69
[2025-06-04 09:06] VITALS: BP 101/63; PULSE 66; O2SAT 97
== END 2025-06-05 23:59 | disposition home or self-care (01) ==
LOC: CR 09:00
PROVIDERS: PCP Family Medicine; Visit Provider Internal Medicine Cardiovascular Disease
DX: R69 Illness, unspecified (principal)

== ENCOUNTER 2025-06-25 09:00 | Outpatient (RCR) | payer SELFPAY ==
[2025-06-06 00:05] VITALS: BP 101/63; PULSE 66
[2025-06-09 09:17] VITALS: BP 114/71; PULSE 73
[2025-06-11 09:30] VITALS: BP 92/59; PULSE 69
[2025-06-16 09:11] VITALS: BP 99/64; PULSE 69
[2025-06-18 09:09] VITALS: BP 110/71; PULSE 64
[2025-06-23 09:15] VITALS: BP 103/66; PULSE 70
[2025-06-25 09:22] VITALS: BP 102/67; PULSE 66
== END 2025-07-05 23:59 | disposition home or self-care (01) ==
LOC: CR 09:00
PROVIDERS: PCP Family Medicine; Visit Provider Internal Medicine Cardiovascular Disease
DX: R69 Illness, unspecified (principal)

== ENCOUNTER 2025-07-06 08:05 | Outpatient (CLI) | payer SELFPAY ==
--- NOTE | 2025-07-06 08:00 | RT.EKG_ITS ---
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
== END 2025-07-06 08:06 | disposition home or self-care (01) ==
LOC: DI.CARD 08:06
PROVIDERS: PCP Family Medicine; Visit Provider Registered Nurse
DX: I25.10 Atherosclerotic heart disease of native coronary artery without angina pectoris (principal); I45.10 Unspecified right bundle-branch block; I44.4 Left anterior fascicular block
CPT/HCPCS: 93010